=== PATIENT | female | born 1975 | race African-American/Black ===

== ENCOUNTER 2018-05-05 13:37 | Emergency (ER) | payer OTHER ==
[~2018-05-05] VITALS: Ht 157.5 cm; Wt 49.8 kg
[~2018-05-05 13:37] MED LIST: BENTYL10 MG PO; FLEXERIL10 MG PO; ZOFRAN ODT4 MG PO
[2018-05-05 15:20] VITALS: BP 138/85
== END 2018-05-05 15:39 | disposition home or self-care (01) ==
LOC: EME 13:37
DX: S90.01XA Contusion of right ankle, initial encounter (principal); W22.8XXA Striking against or struck by other objects, initial encounter
CPT/HCPCS: 73564; 73590; 73610; 73630; 99281; 99284